=== PATIENT | male | born 1955 | race Caucasian/White ===

== ENCOUNTER → 2017-03-31 | Day surgery (SDC) | payer MEDICARE, BC ==
[~2017-03-31] MED LIST: ATOR10TA PO; ATOR20TA58 PO; HYDR-963 PO; IV RINGERS,LACTATED 1000ML 1,000 ML IV SCH; LIDOCAINE 2% PF Vial for OR 5 ML VIAL. ONE; NIAC500T PO; PREG100C PO; PROPOFOL 60 ML IV ONE; VENL75TA PO; ZOLP10TA4 PO
[2017-03-31 08:25] VITALS: BP 140/75
--- NOTE | 2017-04-01 15:04 | PATHOLOGY ---
PATHOLOGY REPORT * * * * * * * * FINAL DIAGNOSIS: Esophageal biopsies, distal esophagus: - Segments of esophagogastric and gastric mucosa showing focal foveolar hyperplasia and chronic inflammation. (JPM:kitty; 04/01/2017) COMMENT: Sections of the distal esophageal biopsy reveal a single segment of esophagogastric mucosa and several segments of gastric mucosa showing focal foveolar hyperplasia and moderate to marked, focally active, chronic inflammation. The squamous esophageal mucosa appears hyperplastic. The findings are consistent with reflux. There is no evidence of Kumari's change, dysplasia, or malignancy. (JPM:kitty; 04/01/2017) REPORT ELECTRONICALLY SIGNED BY: Panda Bullock M.D. DATE/TIME: 04/01/2017 15:03 * * * * * * * * GROSS PATHOLOGY: Received in formalin labeled "Yahir Cheek, distal esophagus BX," are 3 segments of mckeon soft tissue measuring 1.0 x 0.4 x 0.3 cm in aggregate dimensions and ranging from 0.3 to 0.5 cm in maximum dimension. The specimen is submitted entirely in cassette A1. (TSD; 03/31/2017) INITIAL CPT CODE(S): A; 49451 Professional services performed by [facility] [place] [address] Technical services performed by [facility] at [address] [place] [address], [facility] [address] [address]. SPECIMEN(S) RECEIVED: A.Distal esophagus biopsy CLINICAL HISTORY: Dysphagia, screening PATIENT: YAHIR CHEEK /AGE: 1206/19/1955 (Age: 61) PATIENT #: [id number] ALT CASE #: SPECIMEN COLLECTION DATE: 03/31/2017 SPECIMEN RECEIVED DATE: 03/31/2017 [facility] - [address] [place] [address] - PHONE: [phone] * * * END OF REPORT * * *
== END | disposition home or self-care (01) ==
LOC: SURG 06:34
PROVIDERS: ATTEND Internal Medicine Gastroenterology
DX: Z12.11 Encounter for screening for malignant neoplasm of colon (principal); K64.0 First degree hemorrhoids; K57.30 Diverticulosis of large intestine without perforation or abscess without bleeding; E78.00 Pure hypercholesterolemia, unspecified; K21.9 Gastro-esophageal reflux disease without esophagitis; M19.91 Primary osteoarthritis, unspecified site; F32.9 Major depressive disorder, single episode, unspecified; F17.200 Nicotine dependence, unspecified, uncomplicated; Z87.39 Personal history of other diseases of the musculoskeletal system and connective tissue; Z86.69 Personal history of other diseases of the nervous system and sense organs
CPT/HCPCS: 43239; 43450; 88305; G0121; J2704; J2001